=== PATIENT | female | born 1930 | race Caucasian/White ===

== ENCOUNTER 2017-04-16 09:07 | Emergency (ER) | payer MEDICARE, OTHER ==
[~2017-04-16] VITALS: Ht 152.4 cm; Wt 69.5 kg
[~2017-04-16 09:07] MED LIST: janumet
[2017-04-16 09:10] VITALS: Ht 152.4 cm; Wt 69.5 kg
--- NOTE | 2017-04-16 11:04 | ERA ---
ER Documentation Chief Complaint Date/Time DATE: 04/16/17 TIME: 11:04 Chief Complaint right leg pain x 1 week HPI The patient is a 87-year-old female, stenting to the ER because of intermittent right leg pain for 1 week, she denies any trauma, no aggravating or relieving factor. She denies similar symptoms previously, denies fever, chills, neck pain , chest pain, abdominal pain, vomiting, dysuria, diarrhea, constipation. She does not smoke nor drink Past medical history: Diabetes mellitus, hypertension Past Surgical history: None ROS All systems reviewed and are negative except as per history of present illness. Medications Home Meds Active Scripts Tramadol HCl (Tramadol HCl) 50 Mg Tablet, 50 MG PO Q6 Y for PAIN, #15 TAB Prov:NADJA DAIGLE MD 04/16/17 Reported Medications [janumet] No Conflict Check, BID 01/05/14 Allergies Allergies: Coded Allergies: No Known Allergy (Unverified , 01/05/14) PMhx/Soc Medical and Surgical Hx: pt denies Surgical Hx History of Surgery: No Anesthesia Reaction: No Hx Neurological Disorder: No Hx Respiratory Disorders: No Hx Cardiac Disorders: Yes (hypertension) Hx Psychiatric Problems: No Hx Miscellaneous Medical Probl: Yes (diabetes) Hx Alcohol Use: No Hx Substance Use: No Hx Tobacco Use: No Smoking Status: Never smoker Physical Exam Vitals Vital Signs Date Time Temp Pulse Resp B/P Pulse Ox O2 Delivery O2 Flow Rate FiO2 04/16/17 09:10 98.1 71 18 190/82 99 Physical Exam Const: No acute distress. Head: Atraumatic. Eyes: Normal Conjunctiva. ENT: Normal External Ears, Nose and Mouth. Neck: Full range of motion. No meningismus. Resp: Clear to auscultation bilaterally. Cardio: Regular rate and rhythm. Abd: Soft, non distended, normal bowel sounds, non tender. Skin: No petechiae or rashes. Back: No midline or flank tenderness. Ext: No cyanosis, or edema. Minimal right posterior thigh discomfort , no calf tenderness Neur: Awake and alert. No focal deficit Psych: Normal Mood and Affect. Procedures/MDM [place] [address] Radiology Main Line: [phone] DIAGNOSTIC IMAGING REPORT Patient: BLAYNE FRAUSTO : 1930 Age: 87 Sex: F MR #: [id number] DOS: 04/16/17 1115 Ordering MD: NADJA DAIGLE MD Location: E/R Room/Bed: PROCEDURE: US Lower extremity Venous. CLINICAL INDICATION: Lower extremity pain and swelling TECHNIQUE: Multiple sonographic images of the right lower extremity deep venous system was obtained utilizing grayscale, color-flow, compressive sonography and doppler imaging with augmentation. The images were reviewed on a PACS workstation. COMPARISON: None. FINDINGS: There is normal compressibility and flow within the right common femoral, superficial femoral and popliteal veins. Antegrade flow is identified in the right posterior tibial vein. IMPRESSION: No sonographic evidence for deep venous thrombosis. RPTAT: AA .Luis Motley MD, MD Date Time Electronically viewed and signed by .Luis Motley MD, MD on 04/16/2017 11:51 .P/ CC: NADJA DAIGLE MD MEDICAL MAKING DECISION: The patient is a 87-year-old female, presenting with right leg pain of unclear etiology. She is stable for outpatient follow-up The differential diagnoses considered include but are not limited to DVT, sciatica, cellulitis, muscle spasm Departure Diagnosis: Primary Impression: Pain of right leg Condition: Good Comments She was discharged with [facility] I discussed the findings with the patient. I advised the patient to follow-up with the primary physician in about 1-2 days, sooner if needed and return if any concern. NADJA DAIGLE MD Apr 16, 2017 11:04
--- NOTE | 2017-04-16 11:51 | RADRPT ---
PROCEDURE: US Lower extremity Venous. CLINICAL INDICATION: Lower extremity pain and swelling TECHNIQUE: Multiple sonographic images of the right lower extremity deep venous system was obtaine d utilizing grayscale, color-flow, compressive sonography and doppler imaging with augmentation. Th e images were reviewed on a PACS workstation. COMPARISON: None. FINDINGS: There is normal compressibility and flow within the right common femoral, superficial femoral and po pliteal veins. Antegrade flow is identified in the right posterior tibial vein. IMPRESSION: No sonographic evidence for deep venous thrombosis. RPTAT: AA .Luis Motley MD, MD Date Time Electronically viewed and signed by .Luis Motley MD, MD on 04/16/2017 11:51 .P/
[2017-04-16] MEDS ORDERED: TRAM50TA2 PO (12:08)
[2017-04-16 12:16] VITALS: BP 141/68; PULSE 77; RESP 18
== END 2017-04-16 12:18 | disposition home or self-care (01) ==
LOC: E/R 09:07
DX: M79.604 Pain in right leg (principal); I10 Essential (primary) hypertension; E11.9 Type 2 diabetes mellitus without complications
CPT/HCPCS: 93971; 99283

== ENCOUNTER 2018-03-25 12:51 | Emergency (ER) | END 2018-03-25 14:56 | disposition home or self-care (01) ==